=== PATIENT | female | born 1965 | race Hispanic/Latino ===

== ENCOUNTER 2017-04-19 10:04 | Day surgery (SDC) | payer OTHER ==
[2017-04-18 13:03] VITALS: BMI 36.1
--- NOTE | 2017-04-18 19:38 | ADD-HP ---
ADDENDUM Alessandra Chong was seen on 01/31/2017 with symptomatic gallstone. She had financial issues a nd now has presented ready to schedule for surgery. She has resolved her financial issues. Plan is for laparoscopic video cholecystectomy. Risk of infection, bleeding, reoperation, visceral injury di scussed, tool carrier form was used, questions answered. Her past history is the same as her recent hi story and physical. MEDICATIONS: Vitamin D daily, hydrochlorothiazide 25 mg a day, lisinopril 10 mg daily, Tandem Plus 1 62/115.2 mg daily. PHYSICAL EXAMINATION: VITAL SIGNS: 158.4 pounds, 60 inches, 30 BMI, 136/65, 88, 100 degrees. HEAD, EYES, EARS, NOSE, AND THROAT: Unremarkable. LUNGS: Clear to auscultation. CARDIAC: Regular rate and rhythm without murmur, rub, or gallop. ABDOMEN: Soft. Mild tenderness in right upper quadrant. ASSESSMENT AND PLAN: Symptomatic gallstones. PLAN: Laparoscopic video cholecystectomy. Risks and benefits explained. She consents. We will jenifer n this as an outpatient in the near future, probably tomorrow.
[2017-04-19] MEDS ORDERED: Ketorolac Tromethamine 30 MG/ML VIAL ONE (10:31)
[2017-04-19] MEDS ORDERED: Levofloxacin 500 mg/D5W 100 ml Premix Bag ONE (10:31)
[2017-04-19] MEDS ORDERED: Potassium Chloride 40 MEQ, Admixture Fee 1 EACH in Sodium Chloride 0.9% 250 ML 250 ML IVPB SCH (11:30)
[2017-04-19] MEDS ORDERED: Lidocaine 2% w/Epinephrine 1:200K 20 ML VIAL ONE (12:37)
[2017-04-19] MEDS ORDERED: Bupivacaine 0.25% HCL 30 ML VIAL ONE (12:37)
[2017-04-19] MEDS ORDERED: Fentanyl 100 MCG/2 ML VIAL ONE (12:45)
[2017-04-19] MEDS ORDERED: Midazolam HCl 2 mg/2 ml Vial ONE (12:45)
--- NOTE | 2017-04-19 14:08 | OP ---
DATE OF PROCEDURE: 04/19/2017 PREOPERATIVE DIAGNOSES: Acute chronic cholecystitis, cholelithiasis. POSTOPERATIVE DIAGNOSES: Acute chronic cholecystitis, cholelithiasis. PROCEDURE PERFORMED: Laparoscopic video cholecystectomy. FINDINGS: Multiple large stones, thickened gallbladder wall, mild edema and normal liver. SURGEON: Dr. Mitchell Harris. ANESTHESIA: General. Local 0.5% Marcaine, 30 mL, mixed with 2% Xylocaine with epinephrine 20 mL tot al volume mixture used. PROCEDURE IN DETAIL: Patient was taken to the operating room where under general anesthesia, abdomen was clipped of hair, prepared with ChloraPrep, draped in routine fashion. Local anesthetic infiltra omra into skin and subcutaneous tissue about the operative site. Infraumbilical incision made and pne umoperitoneum to 15 mmHg obtained with the Veress needle, replacing it with a 5 port and laparoscope inserted. Right subxiphoid incision was made and 11 port placed. Right subcostal incision made mid clavicular anterior axillary lines and 5 ports placed. The gallbladder wall was thickened and mildly edematous. Fundus grasped and reflected cephalad. Infundibulum grasped and reflected laterally. C ystic artery and duct dissected free. Critical view obtained with pericholecystic dissection 2/3 of the cystic plate, cystic artery and duct doubly clipped proximally, divided, and gallbladder dissecte d free from the liver bed obtaining good hemostasis prior to division of final peritoneal attachments . Gallbladder and multiple stones removed and submitted to Pathology. Good hemostasis ensured with the cautery. The patient tolerated the procedure well. Good hemostasis ensured. Pneumoperitoneum a nd irrigant evacuated. All instruments removed and all skin incisions approximated with interrupted subdermal 4-0 Monocryl and DermaGlue applied.
[2017-04-19] MEDS ORDERED: HYDROcodone/Acetaminophen 5/325 mg Tablet ONE (15:32)
[2017-04-19] MEDS ORDERED: Lidocaine 1% PF 5 ML VIAL ONE (15:54)
[2017-04-19] MEDS ORDERED: Dexamethasone 20 MG/5 ML VIAL ONE (15:54)
[2017-04-19] MEDS ORDERED: Glycopyrrolate 0.2 MG/ML 5 ML SYRINGE ONE (15:54)
[2017-04-19] MEDS ORDERED: PROPOFOL 200 MG/20 ML VIAL ONE (15:54)
[2017-04-19] MEDS ORDERED: Ondansetron HCl/PF 4 MG/2 ML Vial ONE (15:54)
== END 2017-04-19 16:25 | disposition home or self-care (01) ==
LOC: SDC 10:04
PROVIDERS: ATTEND Specialist
PROC: 0FT44ZZ Resection of Gallbladder, Percutaneous Endoscopic Approach (ICD-10-PCS; principal; 2017-04-19)
DX: K80.12 Calculus of gallbladder with acute and chronic cholecystitis without obstruction (principal); I10 Essential (primary) hypertension; C50.912 Malignant neoplasm of unspecified site of left female breast; Z79.899 Other long term (current) drug therapy; Z88.0 Allergy status to penicillin; Z98.890 Other specified postprocedural states
CPT/HCPCS: 88304; J0131; J1100; J1885; J1956; J2001; J2250; J2405; J2704; J3010; J3480; J7050; S0020

== ENCOUNTER 2018-04-02 03:12 | Inpatient (IN) | payer SELFPAY ==
[2018-04-02] MEDS ORDERED: Diazepam 5 MG TAB ONE (03:58)
[2018-04-02] MEDS ORDERED: Ketorolac Tromethamine 30 MG/ML VIAL ONE (03:58)
[2018-04-02 04:25] LABS: #Basophils 0.1 thou/uL (0.0-0.2); #Lymphocytes 2.2 thou/uL (1.20-3.40); #Monocytes 0.9 thou/uL (0.11-0.59); #Neutrophils 9.9 thou/uL (1.40-6.50); %Basophils 0.5 % (0.0-1.0); %Eosinophils 0.3 % (0.0-10.0); %Lymphocytes 16.9 % (21.0-51.0); %Monocytes 6.7 % (0.0-10.0); %Neutrophils 75.7 % (42.0-75.0); Hemoglobin 12.7 g/dL (12.0-16.0); Mean Corpuscular HGB CONC 35.1 g/dL (32.0-36.0); Mean Corpuscular Hemoglobin 28.7 pg (27.0-31.0); Mean Corpuscular Volume 81.7 fL (78.0-98.0); Mean Platelet Volume 7.4 fL (7.4-10.4); Platelet Count 364 thou/uL (130-400); Red Blood Cell (RBC) Count 4.42 mill/uL (4.20-5.40); White Blood Cell (WBC) Count 13.1 thou/uL (4.8-10.8)
[2018-04-02 04:43] LABS: Acetaminophen Less than 6.0 mcg/mL (10.0-30.0); Alcohol Less than 10 mg/dL (Less than 10); Salicylate Less than 8.0 mg/dL (15.0-30.0)
[2018-04-02 04:45] LABS: ALT (SGPT) 28 U/L (8-55); AST (SGOT) 20 U/L (5-34); Albumin 3.7 g/dL (3.5-5.0); Alkaline Phosphatase 63 U/L (40-150); Anion Gap 17 mmol/L (10-20); BUN (Urea Nitrogen) 10 mg/dL (9.8-20.1); Bilirubin, Total 0.8 mg/dL (0.2-1.2); CK (CPK) 250 U/L (29-168); Calc. Creatinine Clearance 0 mL/min (70-130); Calcium 8.3 mg/dL (7.8-10.44); Carbon Dioxide 25 mmol/L (22-29); Chloride 75 mmol/L (98-107); Estimated GFR-MDRD Greater than 90; Globulin 2.6 g/dL (2.4-3.5); Glucose 174 mg/dL (70-105); Protein, Total 6.3 g/dL (6.0-8.3)
[2018-04-02 04:55] LABS: Potassium 2.2 mmol/L (3.5-5.1); Sodium 115 mmol/L (136-145)
[2018-04-02 05:28] LABS: Osmolality, Serum 245 mOsm/kg (280-295)
[2018-04-02] MEDS ORDERED: Potassium Chloride 20 MEQ TAB ONE (05:43)
[2018-04-02 06:10] LABS: Base Excess-Venous 6.7 mmol/L (0 (+/- 2.5)); Bicarbonate (HCO3v) 30.1 mmol/L (22.0-29.0); CO2 Tension (PvCO2) 37.8 mmHg (41.0-51.0); Hemoglobin - Calc 13.5 g/dL (12.0-18.0); O2 Tension (PvO2) 44.6 mmHg (35.0-45.0); Potassium 2.1 mmol/L (3.4-4.7); T. Carbon Dioxide 31.2 mmol/L (1.0-85.0); pH (Venous) 7.509 (7.35-7.45); vO2 Saturation-calc 84.6 % (94-98)
--- NOTE | 2018-04-02 07:55 | RAD ---
CHEST 1 VIEW: INDICATION: Heart palpitations. COMPARISON: None. FINDINGS: There are low lung volumes. The heart size is accentuated by exam technique. No definite consolidat ion, pleural effusion, or pneumothorax is evident. No acute osseous abnormality is grossly evident. A small focus of calcific tendinosis overlies the left greater tuberosity of the shoulder. IMPRESSION: 1. No acute cardiopulmonary abnormality. 2. Calcific tendinosis of the left shoulder. POS: BH
[2018-04-02 08:10] VITALS: BMI 26.4
--- NOTE | 2018-04-02 08:50 | CT ---
PRELIMINARY REPORT/[facility]/EMERGENTY AFTER-HOURS PROCEDURE CT Head Without Contrast EXAM DATE/TIME: 04/02/2018 4:15 AM CLINICAL HISTORY: 53 years old, female; Signs and symptoms; Altered mental status/memory loss; Confusion or disorientat ion; Patient HX: LUANN; 53 yo f presents to ed with complaint of anxiety. PT reports she woke up feelin g anxious and states that she "couldn't feel her body. " PT states repeatedly " i can't feel my body. " PT also reports associated headache. PT denies any pain. PT reports she had no medical issues prio r to going to sleep. TECHNIQUE: Axial computed tomography images of the head/brain without contrast. COMPARISON: No relevant prior studies available. FINDINGS: Brain: No intracrainal hemorrhage. No midline shift. The brain parenchyma appears normal for age. Ventricles: No ventriculomegaly. Bones/joints: Normal. No acute fracture. Sinuses: Normal as visualized. No acute sinusitis. Mastoid air cells: Normal as visualized. No mastoid effusion. Soft tissues: Normal. IMPRESSION: No acute intracranial abnormality. Thank you for allowing us to participate in the care of your patient. Dictated and Authenticated by: Jose Antonio Diehl MD 04/02/2018 4:25 AM Central Time ([place] & [place]) FINAL REPORT CT BRAIN WITHOUT CONTRAST: I agree with the preliminary report provided. No acute intracranial abnormality is evident. POS:
[2018-04-02 10:07] LABS: Anion Gap 10 mmol/L (10-20); BUN (Urea Nitrogen) 6 mg/dL (9.8-20.1); Calc. Creatinine Clearance 133 mL/min (70-130); Calcium 8.6 mg/dL (7.8-10.44); Carbon Dioxide 29 mmol/L (22-29); Chloride 80 mmol/L (98-107); Estimated GFR-MDRD Greater than 90; Glucose 134 mg/dL (70-105)
[2018-04-02 10:15] LABS: Potassium 2.7 mmol/L (3.5-5.1); Sodium 116 mmol/L (136-145)
[2018-04-02] MEDS ORDERED: Ondansetron ODT 4 MG TAB PO PRN (10:43)
[2018-04-02] MEDS ORDERED: Ondansetron PF 4 MG/2 ML Vial IVP PRN (10:43)
[2018-04-02] MEDS ORDERED: Loperamide HCl 2 MG CAP PO PRN (10:43)
[2018-04-02] MEDS ORDERED: Potassium Chloride 60 MEQ in Premix Bag 1 BAG IVPB SCH (10:45)
[2018-04-02] MEDS ORDERED: Sodium Chloride 3% 500 ML IVPB SCH ×3 (10:45→14:36)
--- NOTE | 2018-04-02 11:23 | RAD ---
CHEST 1 VIEW: INDICATION: History of subclavian central venous catheter placement. COMPARISON: Prior study dated 04/02/2018. FINDINGS: There is a new left subclavian central venous catheter in place projecting in the region of the right atrium. No definite pneumothorax is evident. There are low lung volumes that accentuate the cardia c silhouette. Chronic osseous changes are stable. IMPRESSION: 1. New left subclavian central venous catheter without visible pneumothorax. 2. Low lung volumes. POS: [facility]
[2018-04-02] MEDS ORDERED: Potassium Chloride 40 MEQ in Sodium Chloride 0.9% 250 ML 250 ML IVPB SCH (11:45)
[2018-04-02] MEDS: ALPRAZolam 1 MG TAB PO PRN ×2 (11:56→23:44)
--- NOTE | 2018-04-02 12:41 | OP ---
DATE OF PROCEDURE: 04/02/2018 PREOPERATIVE DIAGNOSIS: Acute severe hyponatremia. POSTOPERATIVE DIAGNOSIS: Acute severe hyponatremia. PROCEDURE PERFORMED: Placement of left subclavian central venous catheter. INDICATIONS FOR PROCEDURE: A 53-year-old woman, presented with severe acute hyponatremia. I was asked to place a central venous access to facilitate hypertonic saline infusion. DESCRIPTION OF PROCEDURE: Informed consent obtained for the patient and was placed in supine position. Left chest wall sterilely prepped and draped in usual fashion. Skin below the left clavicle anesthestized with 1% lidocaine. Left subclavian vein was then cannulated with an 18-gauge introducer needle returning dark venous blood. Guidewire was passed through the needle and advanced through the left subclavian vein without resistance. Needle was withdrawn over the guidewire. A stab incision was made adjacent to the guidewire using 11 scalpel. The dilator was passed over the guidewire, dilating the subcutaneous tissues. The dilator was removed and a triple-lumen central venous catheter was advanced over the guidewire and placed in the left subclavian vein without resistance stopping at the 18 cm yudy. Guidewire was removed. Dark venous blood was aspirated from all three ports which were then individually flushed with saline. The catheter was secured to anterior chest wall using 3-0 silk suture at two points. Sterile dressing was applied. The patient tolerated this procedure without any apparent complications. Chest x-ray was obtained confirming proper placement of the port. No pneumothorax present. Job ID: [id number]
[2018-04-02 14:18] LABS: Sodium 123 mmol/L (136-145)
[2018-04-02 14:22] LABS: Anion Gap 12 mmol/L (10-20); BUN (Urea Nitrogen) 6 mg/dL (9.8-20.1); Calc. Creatinine Clearance 112 mL/min (70-130); Calcium 9.1 mg/dL (7.8-10.44); Carbon Dioxide 28 mmol/L (22-29); Chloride 87 mmol/L (98-107); Estimated GFR-MDRD Greater than 90; Glucose 140 mg/dL (70-105); Potassium 3.6 mmol/L (3.5-5.1); Sodium 123 mmol/L (136-145)
[2018-04-02 16:55] LABS: Magnesium 2.3 mg/dL (1.6-2.6); Phosphorus 2.1 mg/dL (2.3-4.7)
[2018-04-02] MEDS: Sodium Chloride 0.9% 1,000 ML IV SCH (17:15)
[2018-04-02 17:21] LABS: Sodium 129 mmol/L (136-145)
[2018-04-02] MEDS: Potassium Chloride 20 MEQ TAB PO SCH ×2 (17:30→20:48)
[2018-04-02] MEDS: Famotidine 20 MG TAB PO SCH (20:48)
--- NOTE | 2018-04-02 21:11 | CON ---
DATE OF CONSULTATION: 04/02/2018 SERVICE: Pulmonary Medicine. REASON FOR CONSULTATION: IMCU patient. HISTORY OF PRESENT ILLNESS: The patient is a 53-year-old female with past medical history significant for breast cancer. She was in her usual state of health when she started having increasing sensory problems, and mental status changes. She presented to the emergency department for further evaluation. CT of the head and some basic laboratory work was done. Her sodium was extremely low. She was tucked in IMCU and initiated on 3% saline. She denies any shortness of breath or chest discomfort. She has some low abdominal discomfort on palpation, but indicates that she needs to use the restroom. Otherwise, she is returning to her usual state of health. She had some weakness on presentation, which is getting better. PAST MEDICAL HISTORY: 1. Hypertension. 2. Breast cancer. 3. Anxiety disorder. PAST SURGICAL HISTORY: 1. Cholecystectomy. 2. Excisional biopsy of left breast nodule. 3. Unilateral oophorectomy, left. 4. Bladder suspension surgery in 2010. FAMILY HISTORY: Noncontributory. SOCIAL HISTORY: Negative for alcohol, tobacco, or illicit drug use. She denies any exposure to chemicals, dust, asbestos, or tuberculosis. ALLERGIES: PENICILLIN CAUSES A RASH. MEDICATIONS: List of her inpatient medications was reviewed. No specific updates were made at this time. REVIEW OF SYSTEMS: General, head, ears, eyes, nose, throat, cardiovascular, respiratory, GI, , musculoskeletal, neurologic, and skin are negative except as mentioned is the HPI. PHYSICAL EXAMINATION: VITAL SIGNS: Afebrile, pulse 112, blood pressure 166/77, respirations 22, and saturation 96% on room air. GENERAL: The patient is awake and alert, in no apparent distress. LUNGS: Excellent air entry without any prolonged expiratory phase, wheezing, rhonchi, or crackles. HEART: Normal rate and regular. ABDOMEN: Soft, nontender, and nondistended. Bowel sounds are positive. MUSCULOSKELETAL: No cyanosis or clubbing. There is no pitting in the bilateral lower extremities. NEUROLOGIC: Grossly nonfocal. LABORATORY DATA: CBC is essentially unremarkable except for a WBC of 13.0. A pH 7.5, pCO2 of 37, pO2 of 45. Chloride, potassium, and sodium are all low. Creatinine falls within normal limits. Ionized calcium 1.0 and osmolality 245. TSH falls within the normal limits. Troponin is negative. Liver function studies are unremarkable. Urinalysis is positive for moderate leukocyte esterase and trace blood. There was significant amount of squamous epithelial cells noted. Urine osmolality is very low. Plasma alcohol, acetaminophen, and salicylates are all unremarkable. Urine cultures are negative. IMAGING: CT of the head was without acute intracranial process. ASSESSMENT: 1. Metabolic encephalopathy, improving. 2. Hyponatremia, on 3% saline. 3. Hypokalemia. 4. Hypocalcemia. DISCUSSION AND PLAN: Nephrology has been consulted working up the hyponatremia. We will back off on the 3% as the patient is fairly easily correcting. We will replace the potassium through time. I will check a magnesium and phosphorus with the next blood draw. Pulmonary/Critical Care will continue to follow along. She will need to remain in the IMCU until she is off the 3% saline. 70 minutes have been devoted to this patient in various activities. I personally reviewed all imaging studies and laboratory data noted within this document. For fifty percent of this time, I was interacting with the patient at the bedside or coordinating care with the care team. For the remainder of the time I was immediately available to the patient in the hospital unit. Job ID: [id number] MTDD
[2018-04-02 21:19] LABS: Sodium 132 mmol/L (136-145)
--- NOTE | 2018-04-03 00:09 | HP ---
CHIEF COMPLAINT: The patient is not feeling good, has stopped eating and is miserable. HISTORY OF PRESENTING ILLNESS: This is a 53-year-old female who was brought in by her family members for increasing confusion, altered mental status, weakness, reduced appetite, and just being miserable in general, and this is going on for close to a month, but increasing in intensity in the past 1 week. The patient or the family are very poor historians. This is in spite of getting a pan washer on the video conference line. The patient when asked denies having any pain, but she looks very uncomfortable in the ICU. PAST MEDICAL HISTORY: Significant for hypertension. PAST SURGICAL HISTORY: Not significant. ALLERGIES: ALLERGIC TO PENICILLIN. REVIEW OF SYSTEMS: CONSTITUTIONAL: Please see HPI. HEENT: Complaints of headache, loss of appetite. No complaints of any blurred vision, nose or ear pain, nose or ear discharge. No complaints of any sore throat. No complaints of any neck pain. RESPIRATORY: No complaints of any respiratory distress. No complaints of any wheezing. CARDIOVASCULAR: No complaints of any chest pain or palpitations or murmur. ABDOMEN: Please see HPI. Complaints of anorexia and nausea. NEUROLOGIC: The patient is increasingly confused, altered, and not really responding well to the family members' verbal cues. MUSCULOSKELETAL: No complaints of pain or swelling of the lower extremity or upper extremity. PSYCHIATRIC: See HPI. PHYSICAL EXAMINATION: VITAL SIGNS: Temperature 98.4, pulse is 88, respiratory rate 20, O2 saturation is 92 to 96 on room air, blood pressure around 150/80. CONSTITUTIONAL: The patient looks in distress. She is writhing in the bed. Does not answer any of the questions, but she is awake and alert, keeps mumbling that she does not feel good. HEENT: Normocephalic, atraumatic head. Normal external canal and tympanic membrane. Normal eyelids and conjunctivae. Pupils are round and reactive to light. Midline trachea. Moist oral mucosa. No cervical lymphadenopathy. RESPIRATORY: Good air entry into both lung anton. No wheezes. No rales. CHEST: Regular rate and rhythm. No murmurs. No gallops. ABDOMEN: Soft, NT, ND. No organomegaly. No masses. No guarding. NEUROLOGIC: The patient is really not responding to any verbal cues, but moving all the 4 extremities, not answering any questions. PSYCHIATRIC: The patient looks very anxious, and looks very uncomfortable, but denies any pain. LABORATORY DATA: Sodium is significantly low at 116, potassium is 2.7, low serum osmolality at 245. Urine osmolality low at 82. Urine sodium less than 20. CT of the brain with no acute abnormalities. ASSESSMENT AND PLAN: 1. Hyponatremia, severe hypo-osmolar hyponatremia: Gently hydrate the patient with hypertonic saline, q.2 hours, check on the sodium, completely stop hydrochlorothiazide. Eventually fluid restrict once patient starts eating and drinking. 2. Severe hypokalemia. Supplement with IV potassium. 3. Hypertension. Trend blood pressures right now, completely stop hydrochlorothiazide and start on a new beta-kimmie or amlodipine for controlling the blood pressures in the future. 4. Continue to monitor with serial BMP, supplement as required, seizure precautions. 5. Be careful at the rate of which sodium is increased to avoid cerebral edema. 6. The patient's prognosis is good, but right now she is critically ill. 7. Renal has been consulted. Job ID: [id number] [facility] CENTERBronson
[2018-04-03 00:13] LABS: Anion Gap 10 mmol/L (10-20); BUN (Urea Nitrogen) 5 mg/dL (9.8-20.1); Calc. Creatinine Clearance 130 mL/min (70-130); Carbon Dioxide 28 mmol/L (22-29); Chloride 95 mmol/L (98-107); Estimated GFR-MDRD Greater than 90; Glucose 84 mg/dL (70-105); Potassium 4.3 mmol/L (3.5-5.1); Sodium 129 mmol/L (136-145)
[2018-04-03] MEDS: Sodium Chloride 0.9% 1,000 ML IV SCH (03:30)
[2018-04-03 05:19] LABS: Anion Gap 10 mmol/L (10-20); BUN (Urea Nitrogen) 8 mg/dL (9.8-20.1); Calc. Creatinine Clearance 133 mL/min (70-130); Calcium 8.1 mg/dL (7.8-10.44); Carbon Dioxide 25 mmol/L (22-29); Chloride 103 mmol/L (98-107); Estimated GFR-MDRD Greater than 90; Glucose 82 mg/dL (70-105); Potassium 3.9 mmol/L (3.5-5.1); Sodium 134 mmol/L (136-145)
[2018-04-03] MEDS: Enoxaparin Sodium 40 MG/0.4 ML SYRINGE SC SCH (09:20)
[2018-04-03] MEDS: Famotidine 20 MG TAB PO SCH ×2 (09:20→20:11)
--- NOTE | 2018-04-03 11:06 | PRG ---
DATE OF SERVICE: 04/03/2018 SERVICE: Pulmonary Medicine. INTERVAL HISTORY: The patient is doing great from respiratory standpoint. She is breathing comfortably. Sodium has risen appropriately. She denies any strength issues or neurologic issues, other than some lateral cutaneous nerve syndrome features associated with her being in bed. Otherwise, there has been no interval change to her condition. Her appetite has improved and she has been moving with physical therapy. PHYSICAL EXAMINATION: VITAL SIGNS: Afebrile, pulse 68, blood pressure 96/59, respirations 20, and saturation 97% on room air. GENERAL: The patient is awake and alert, in no apparent distress. LUNGS: Excellent air entry. There is no prolonged expiratory phase or wheezing present. HEART: Normal rate. Regular. ABDOMEN: Soft, nontender, and nondistended. Bowel sounds are positive. MUSCULOSKELETAL: No cyanosis or clubbing. There is no pitting in the bilateral lower extremities. NEUROLOGIC: Grossly nonfocal. LABORATORY DATA: Sodium 134. Basic metabolic profile is otherwise unremarkable. Potassium 3.9. ASSESSMENT: 1. Metabolic encephalopathy, resolved. 2. Hyponatremia, improving. 3. Hypokalemia, resolved. DISCUSSION AND PLAN: The patient is stable for transition out of the [facility] to the medical unit. Pulmonary/Critical Care will continue to follow along, if she remains in this location. Job ID: [id number]
--- NOTE | 2018-04-03 15:20 | PDOC.PN ---
- Subjective Encounter Start Date: 04/03/18 Encounter Start Time: 15:18 Subjective: no new complaints.family at bedside. -: no CP/dizziness/AMS/SOB/fever - Objective Resuscitation Status - Order Detail: 04/02/18 10:43 Resuscitation Status Routine Resuscitation Status: FULL: Full Resuscitation MAR Reviewed: Yes Vital Signs & Weight: Vital Signs (12 hours) Temp Pulse Resp BP Pulse Ox 04/03/18 15:06 98.4 F 97 20 105/67 98 04/03/18 11:05 98.4 F 88 18 103/57 L 98 04/03/18 07:39 97.8 F 67 20 96/59 L 97 04/03/18 04:00 98.2 F 75 14 91/59 L 97 Weight Weight 154 lb 7 oz I&O: 04/02/18 04/03/18 04/04/18 06:59 06:59 06:59 Intake Total 3227 Output Total 4375 Balance -1148 Result Diagrams: 04/02/18 04:03 04/03/18 04:23 Additional Labs: Laboratory Tests 04/02/18 04/02/18 04/02/18 04:03 09:21 13:48 Sodium 115 L* 116 L* 123 L 04/02/18 04/02/18 04/02/18 13:48 16:18 20:54 Sodium 123 L 129 L 132 L 04/03/18 04:23 Sodium 134 L Phys Exam - Physical Examination Constitutional: NAD sitting up in chair and chatting w family. HEENT: PERRLA, moist MMs, sclera anicteric, oral pharynx no lesions Neck: no nodes, no JVD, supple, full ROM Respiratory: no wheezing, no rales, no rhonchi, clear to auscultation bilateral Cardiovascular: RRR, no significant murmur, no rub Gastrointestinal: soft, non-tender, no distention, positive bowel sounds Musculoskeletal: no edema, pulses present Neurological: non-focal, normal sensation, moves all 4 limbs Psychiatric: normal affect, A&O x 3 Skin: no rash Dx/Plan (1) Hyponatremia with decreased serum osmolality Code(s): E87.1 - HYPO-OSMOLALITY AND HYPONATREMIA Status: Acute (2) Hypokalemia Code(s): E87.6 - HYPOKALEMIA Status: Acute (3) Anxiety Code(s): F41.9 - ANXIETY DISORDER, UNSPECIFIED Status: Acute (4) Hypertension Code(s): I10 - ESSENTIAL (PRIMARY) HYPERTENSION Status: Acute - Plan DVT proph w/SCDs sodium better. DC HCTZ.on hold here -: BP controlled -: Hypertonic saline stopped. -: OK for medical w bacilio GRIMALDO in am -: recheck labs in am * . Review of Systems - Review of Systems Constitutional: negative: fever, chills, sweats, weakness, malaise, other ENT: negative: Ear Pain, Ear Discharge, Nose Pain, Nose Discharge, Nose Congestion, Mouth Pain, Mouth Swelling, Throat Pain, Throat Swelling, Other Respiratory: negative: Cough, Dry, Shortness of Breath, Hemoptysis, SOB with Excertion, Pleuritic Pain, Sputum, Wheezing Cardiovascular: negative: chest pain, palpitations, orthopnea, paroxysmal nocturnal dyspnea, edema, light headedness, other Gastrointestinal: negative: Nausea, Vomiting, Abdominal Pain, Diarrhea, Constipation, Melena, Hematochezia, Other Genitourinary: negative: Dysuria, Frequency, Incontinence, Hematuria, Retention , Other Neurological: negative: Weakness, Numbness, Incoordination, Change in Speech, Confusion, Seizures, Other - Medications/Allergies Allergies/Adverse Reactions: Allergies Allergy/AdvReac Type Severity Reaction Status Date / Time Penicillins Allergy Verified 04/02/18 07:43 Medications: Current Medications Alprazolam (Xanax) 1 mg PO BIDPRN PRN PRN Reason: Anxiety Last Admin: 04/02/18 23:44 Dose: 1 mg Enoxaparin Sodium (Lovenox) 40 mg SC 0900 [facility] Last Admin: 04/03/18 09:20 Dose: 40 mg Famotidine (Pepcid) 20 mg PO BID [facility] Last Admin: 04/03/18 09:20 Dose: 20 mg Loperamide HCl (Imodium) 2 mg PO PRN PRN PRN Reason: Diarrhea/Loose Stools Ondansetron HCl (Zofran Odt) 4 mg PO Q6H PRN PRN Reason: Nausea/Vomiting Ondansetron HCl (Zofran) 4 mg IVP Q6H PRN PRN Reason: Nausea/Vomiting Sodium Chloride (Flush - Normal Saline) 10 ml IVF Q12HR [facility] Last Admin: 04/03/18 10:13 Dose: 10 ml Sodium Chloride (Flush - Normal Saline) 10 ml IVF PRN PRN PRN Reason: Saline Flush
[2018-04-03] MEDS ORDERED: Acetaminophen 500 MG TAB PO PRN (17:15)
--- NOTE | 2018-04-03 18:51 | PRG ---
DATE OF SERVICE: 04/03/2018 SUBJECTIVE: The patient noted with the following vital signs. OBJECTIVE: VITAL SIGNS: Afebrile, temperature 98.4, pulse 97, respiratory rate of 20, O2 saturations 98%, and blood pressure 105/67. HEENT: Unremarkable. CARDIOVASCULAR SYSTEM: First and second heart sounds were heard. RESPIRATORY SYSTEM: Clear to auscultation. DIGESTIVE SYSTEM: Revealed a benign abdomen. EXTREMITIES: No peripheral edema. SKIN: No new gross rash. LYMPHATICS: No peripheral lymphadenopathy. LABORATORY INVESTIGATION: Showed a sodium, which has gone up to 134. IMPRESSION: Severe hyponatremia, which seems to have improved status post hypertonic saline and normal saline. The patient's mental status has so much improved. PLAN: 1. We will discontinue all IV fluid and continue the patient on regular diet. 2. The patient to follow up with Nephrology as an outpatient. Job ID: [id number]
--- NOTE | 2018-04-04 01:05 | CON ---
DATE OF CONSULTATION: CONSULTING PHYSICIAN: Justin Carlton MD REQUESTING PHYSICIAN: Yoly Horn MD REASON FOR CONSULTATION: Severe symptomatic hyponatremia. IMPRESSION: Severe symptomatic hyponatremia likely in the context of hydrochlorothiazide use compounded by poor osmolar intake. However, I cannot completely rule out SIADH as precipitating factor. PLAN: 1. Given the severity of this hyponatremia and the symptomatic nature, we will guide and start this patient on hypertonic saline and monitor the sodium very closely. Once the sodium has gotten above 120 level, we will transition over to normal saline. 2. Permanently discontinue hydrochlorothiazide on any other SSRI. 3. Increase protein intake in the way of animal meat. We will place this patient on regular diet. 4. Further management will be dependent on the clinical course. HISTORY OF PRESENT ILLNESS: A 53-year-old female patient, who presented here with not feeling well, not eating very well. The patient could not offer much of any history. The patient's sleep apnea completely altered and patient seems to have been confused for the most part according to the family member. On presentation, the patient was noted to have severe hyponatremia with sodium of 115 which went down to 111. As a result of these findings, decision has been taken to admit this patient to IMCU and have Renal evaluate this patient. Of note, the patient has been on hydrochlorothiazide and evaluation of all other medications also showed venlafaxine and paroxetine, though patient claimed not to be taking this medication but hydrochlorothiazide the patient has been on it. PAST MEDICAL HISTORY: Significant for hypertension and possible anxiety and depression. ALLERGIES: TO PENICILLIN. REVIEW OF SYSTEMS: Could not be verified, could not be obtained comprehensively from this patient who seems to be out of it. PHYSICAL EXAMINATION: GENERAL: The patient was found to be quite confused and somnolent. VITAL SIGNS: Noted with the following vital signs; afebrile temperature 97.8, pulse 67, respiratory rate of 20, O2 saturations of 97%, blood pressure 96/59. HEENT: Unremarkable. CARDIOVASCULAR SYSTEM: First and second heart sounds were heard. RESPIRATORY SYSTEM: Clear to auscultation. DIGESTIVE SYSTEM: Revealed a benign abdomen with positive bowel sounds. EXTREMITIES: No peripheral edema. SKIN: No new gross rash. LYMPHATICS: No peripheral lymphadenopathy. SUMMARY: A 53-year-old female patient with severe hyponatremia. Thank you for this consultation. We will follow with you. Job ID: [id number]
[2018-04-04 07:13] VITALS: BP 120/63; TEMP 98.4
[2018-04-04] MEDS: Enoxaparin Sodium 40 MG/0.4 ML SYRINGE SC SCH (08:46)
[2018-04-04] MEDS: Famotidine 20 MG TAB PO SCH (08:47)
[2018-04-04 08:48] LABS: Anion Gap 12 mmol/L (10-20); BUN (Urea Nitrogen) 14 mg/dL (9.8-20.1); Calc. Creatinine Clearance 105 mL/min (70-130); Calcium 8.8 mg/dL (7.8-10.44); Carbon Dioxide 26 mmol/L (22-29); Chloride 103 mmol/L (98-107); Estimated GFR-MDRD 89; Glucose 123 mg/dL (70-105); Potassium 3.7 mmol/L (3.5-5.1); Sodium 137 mmol/L (136-145)
[2018-04-04 09:03] LABS: #Eosinphils 0.2 thou/uL (0.0-0.7); #Lymphocytes 2.8 thou/uL (1.20-3.40); #Monocytes 0.4 thou/uL (0.11-0.59); #Neutrophils 3.8 thou/uL (1.40-6.50); %Basophils 0.1 % (0.0-1.0); %Eosinophils 2.9 % (0.0-10.0); %Lymphocytes 38.5 % (21.0-51.0); %Monocytes 4.9 % (0.0-10.0); %Neutrophils 53.5 % (42.0-75.0); Hemoglobin 11.2 g/dL (12.0-16.0); Mean Corpuscular HGB CONC 32.1 g/dL (32.0-36.0); Mean Corpuscular Hemoglobin 27.9 pg (27.0-31.0); Mean Corpuscular Volume 86.7 fL (78.0-98.0); Mean Platelet Volume 7.6 fL (7.4-10.4); Platelet Count 321 thou/uL (130-400); RBC Distribution Width 12.8 % (11.5-14.5); Red Blood Cell (RBC) Count 4.02 mill/uL (4.20-5.40); White Blood Cell (WBC) Count 7.2 thou/uL (4.8-10.8)
--- NOTE | 2018-04-04 10:03 | PRG ---
DATE OF SERVICE: 04/04/2018 SERVICE: Pulmonary Medicine. SUBJECTIVE: The patient has returned to her usual state of health. Denies any current chest pain, fevers, chills, nausea, or vomiting. She has been able to get around the room without any difficulties. Otherwise, there has been no interval change to her condition. PHYSICAL EXAMINATION: VITAL SIGNS: Afebrile, pulse 72, respirations 18, and saturation 98% on room air. GENERAL: The patient is awake and alert, in no apparent distress. LUNGS: Excellent air entry. There is no prolonged expiratory phase or wheezing. HEART: Normal rate, regular. ABDOMEN: Soft, nontender, and nondistended. Bowel sounds are positive. MUSCULOSKELETAL: No cyanosis or clubbing. There is no pitting in the bilateral lower extremities. NEUROLOGIC: Grossly nonfocal. LABORATORY DATA: WBC 7.2, hemoglobin 11.2, and platelets 321,000. Sodium 137. Basic metabolic profile is otherwise unremarkable. ASSESSMENT: 1. Metabolic encephalopathy, resolved. 2. Hyponatremia, secondary to hydrochlorothiazide, resolved. 3. Hypokalemia, resolved. DISCUSSION AND PLAN: The patient is stable for discharge from the hospital. I will sign off when she leaves this location. Please call with additional questions or concerns moving forward. Job ID: [id number]
--- NOTE | 2018-04-04 17:37 | DIS ---
DATE OF ADMISSION: 04/02/2018 DATE OF DISCHARGE: 04/04/2018 CONDITION AT THE TIME OF DISCHARGE: Stable and improved. DISCHARGE DIAGNOSES: 1. Hyponatremia, severe, likely secondary to hydrochlorothiazide and poor oral intake. 2. Hypokalemia, resolved. 3. Metabolic encephalopathy secondary to #1, resolved. INHOUSE CONSULTATION: Nephrology, Dr. Carlton. PROCEDURES DONE IN THE HOSPITAL: Placement of a central line by Dr. Blankenship for IV access in the left subclavian vein. CT scan of the brain upon presentation, which was negative for any acute changes. DISCHARGE MEDICATION: The patient has been taken off her hydrochlorothiazide. She will resume lisinopril 10 mg daily. PRIMARY CARE PHYSICIAN: Shonda Sparrow MD. HISTORY OF PRESENTING ILLNESS: Ms. Chong is a 53-year-old female with past medical history of hypertension, presented to the emergency room for generalized weakness, malaise, and poor appetite with altered mental status and increasing confusion. Upon presentation, she was found to be hemodynamically stable with this, but with a sodium as low as 116 and potassium of 2.7. Serum osmolality 245. CT scan of the brain was negative. She was admitted to [facility] with hyponatremia and Nephrology was consulted. She was started on IV fluids, with frequent sodium level checks. Potassium was also replaced. Please see admission history and physical for further details. HOSPITAL COURSE: The patient was seen by Dr. Kwong while she was in the [facility] as well as by Nephrology, Dr. Anderson. She was started on hypertonic saline by Dr. Anderson, which was later stopped once her sodium started to normalize quickly. By the time of discharge, her sodium was 137. Potassium was 3.7. TSH was trended, was normal. The patient's mentation also improved back to her baseline. She has been cleared for discharge from Nephrology and Critical Care Medicine standpoint. She has been taken off her hydrochlorothiazide and have discussed this with the family members and herself. They will follow up with primary care physician for further instructions. She was seen and examined prior to discharge. PHYSICAL EXAMINATION: VITAL SIGNS: This morning, temperature 98.4, pulse of 73, respirations 18, saturating 98% on room air, blood pressure 120/63. GENERAL: No acute distress. Awake, alert, and oriented x3. CHEST: Clear to auscultation bilaterally. Rate and rhythm is regular. LABORATORY DATA: On discharge, sodium is 137, which was 115 upon presentation. Potassium on the day of discharge, is 3.7. Rest of the serum chemistries are unremarkable. CBC shows WBC 7.2, which was 13.1 upon presentation, hemoglobin 11.2. DISCHARGE PLAN: Discharge plan was discussed with the patient and family members who verbalized understanding. Job ID: [id number]
--- NOTE | 2018-04-04 20:37 | PRG ---
DATE OF SERVICE: 04/04/2018 SUBJECTIVE: The patient was seen and examined. OBJECTIVE: VITAL SIGNS: Noted with the following vital signs; afebrile, temperature 98.4, pulse 73, respiratory rate of 18, O2 saturations are 98%, and blood pressure 120/63. HEENT: Unremarkable. CARDIOVASCULAR SYSTEM: First and second heart sounds were heard. RESPIRATORY SYSTEM: Clear to auscultation. DIGESTIVE SYSTEM: Revealed a benign abdomen. Positive bowel sounds. EXTREMITIES: No peripheral edema. SKIN: No new gross rash. LYMPHATICS: No peripheral lymphadenopathy. LABORATORY INVESTIGATION: Showed a sodium of 137. IMPRESSION: Hyponatremia in the context of poor p.o. osmolar intake, which has since resolved as well as this hyponatremia was also contributed to by hydrochlorothiazide. PLAN: 1. Permanently discontinue hydrochlorothiazide. 2. Encourage p.o. intake. 3. Outpatient Nephrology followup strongly recommended. Job ID: [id number]
== END 2018-04-04 12:32 | disposition home or self-care (01) | DRG 640 ==
LOC: ERS 03:12 → IMCU/EMU 06:58
PROVIDERS: ADMIT Internal Medicine; ATTEND Internal Medicine
PROC: 02H633Z Insertion of Infusion Device into Right Atrium, Percutaneous Approach (ICD-10-PCS; principal; 2018-04-02)
DX: E87.1 Hypo-osmolality and hyponatremia (principal); G93.41 Metabolic encephalopathy; E87.6 Hypokalemia; I10 Essential (primary) hypertension; F41.9 Anxiety disorder, unspecified; T50.2X5A Adverse effect of carbonic-anhydrase inhibitors, benzothiadiazides and other diuretics, initial encounter; Z88.0 Allergy status to penicillin; Z79.899 Other long term (current) drug therapy
CPT/HCPCS: 36415; 70450; 71045; 80048; 80053; 80307; 82330; 82550; 82803; 83735; 83930; 83935; 84100; 84300; 84443; 84484; 85025; 93005; J1650; J1885; J3480; J7050; J7131

== ENCOUNTER 2018-07-25 11:27 | Outpatient (CLI) | payer OTHER ==
--- NOTE | 2018-07-25 11:50 | RAD ---
XR Chest Pa Lat STANDARD HISTORY: Abnormal chest x-ray COMPARISON: 04/02/2018 FINDINGS: The heart size is normal. The lungs are well expanded without focal areas of consolidation, pneumothorax or pleural effusions. IMPRESSION: No radiographic evidence of acute cardiopulmonary process.
== END 2018-07-25 11:28 | disposition home or self-care (01) ==
LOC: BICRAD 11:27
PROVIDERS: ATTEND Family Medicine
DX: R91.8 Other nonspecific abnormal finding of lung field (principal)
CPT/HCPCS: 71046

== ENCOUNTER 2020-04-01 08:16 | Inpatient (IN) | payer OTHER, SELFPAY ==
[2020-04-01 08:46] LABS: #Lymphocytes 1.1 thou/uL (1.20-3.40); #Monocytes 0.7 thou/uL (0.11-0.59); #Neutrophils 9.5 thou/uL (1.40-6.50); %Basophils 0.1 % (0.0-1.0); %Eosinophils 0.1 % (0.0-10.0); %Lymphocytes 9.5 % (21.0-51.0); %Monocytes 6.4 % (0.0-10.0); %Neutrophils 83.9 % (42.0-75.0); Hemoglobin 15.2 g/dL (12.0-16.0); Mean Corpuscular HGB CONC 32.4 g/dL (32.0-36.0); Mean Corpuscular Volume 89.5 fL (78.0-98.0); Mean Platelet Volume 8.8 fL (7.4-10.4); Platelet Count 257 thou/uL (130-400); RBC Distribution Width 14.1 % (11.5-14.5); Red Blood Cell (RBC) Count 5.23 mill/uL (4.20-5.40); White Blood Cell (WBC) Count 11.3 thou/uL (4.8-10.8)
[2020-04-01] MEDS ORDERED: cefTRIAXone\\ROCEPHIN 2 GM VIAL ONE (08:52)
[2020-04-01 09:06] LABS: ALT (SGPT) 386 U/L (8-55); AST (SGOT) 554 U/L (5-34); Albumin 3.9 g/dL (3.5-5.0); Alkaline Phosphatase 214 U/L (40-110); Anion Gap 18 mmol/L (10-20); BUN (Urea Nitrogen) 6 mg/dL (9.8-20.1); Bilirubin, Total 4.5 mg/dL (0.2-1.2); Calc. Creatinine Clearance 0 mL/min (70-130); Calcium 8.9 mg/dL (7.8-10.44); Carbon Dioxide 21 mmol/L (22-29); Chloride 105 mmol/L (98-107); Globulin 3.7 g/dL (2.4-3.5); Glucose 173 mg/dL (70-105); Potassium 3.6 mmol/L (3.5-5.1); Protein, Total 7.6 g/dL (6.0-8.3); Sodium 140 mmol/L (136-145)
[2020-04-01 09:18] LABS: Lipase 3102 U/L (8-78)
[2020-04-01] MEDS ORDERED: Azithromycin 500 MG VIAL ONE (09:20)
[2020-04-01] MEDS ORDERED: Iopamidol-370 76% 500 ML 1 ML ONE (10:28)
[2020-04-01 10:58] LABS: SARS-CoV-2 NAA Rapid Test DETECTED (NotDetected)
[2020-04-01 11:37] LABS: Lactic Acid 1.1 mmol/L (0.5-2.2)
[2020-04-01 12:25] LABS: Bacteria/HPF 3+ HPF (None Seen); Bilirubin 1+ (Negative); Blood, Urine Negative (Negative); Clarity Turbid (Clear); Glucose, Urine (Dipstick) Normal (Negative); Ketone, Urine Negative (Negative); Leukocyte 250 Leu/uL (Negative); Nitrite Negative (Negative); Protein, Urine (Dipstick) Negative (Neg-Trace); RBC/HPF 0-3 HPF (0-3); Specific Gravity, Urine 1.004 (1.002-1.036); Urobilinogen Normal mg/dL (Less than 2); pH, Urine 5.5 (5.0-9.0)
[2020-04-01] MEDS ORDERED: Morphine 4 MG/ML VIAL ONE (14:18)
[2020-04-01] MEDS ORDERED: Ondansetron PF 4 MG/2 ML Vial ONE (14:18)
[2020-04-01] MEDS ORDERED: Ondansetron ODT 4 MG TAB PO PRN (15:12)
[2020-04-01] MEDS ORDERED: Senokot S 8.6-50 MG TAB PO PRN (15:12)
[2020-04-01] MEDS ORDERED: Acetaminophen 325 MG TAB PO PRN (15:12)
[2020-04-01] MEDS ORDERED: Guaifenesin DM 100-10/5 ML UDCUP PO PRN (15:12)
[2020-04-01] MEDS ORDERED: HYDROcodone/Acetaminophen 5/325 mg Tablet PO PRN ×2 (15:12)
[2020-04-01] MEDS ORDERED: Ondansetron PF 4 MG/2 ML Vial IVP PRN (15:12)
[2020-04-01] MEDS ORDERED: Sodium Chloride 0.9% 1,000 ML IV SCH (15:12)
[2020-04-01] MEDS ORDERED: Acetaminophen 650 MG Suppository PR PRN (15:12)
[2020-04-01 15:23] VITALS: BMI 28.0
[2020-04-01] MEDS: Famotidine 20 MG TAB PO SCH (20:54)
[2020-04-01] MEDS: Lisinopril 20 MG TAB PO SCH (20:54)
[2020-04-01] MEDS: Sodium Chloride 0.9% 1,000 ML IV SCH (20:54)
[2020-04-02] MEDS: Sodium Chloride 0.9% 1,000 ML IV SCH ×4 (03:20→19:43)
[2020-04-02 07:26] LABS: #Eosinphils 0.2 thou/uL (0.0-0.7); #Lymphocytes 2.2 thou/uL (1.20-3.40); #Monocytes 0.4 thou/uL (0.11-0.59); #Neutrophils 2.5 thou/uL (1.40-6.50); %Basophils 0.9 % (0.0-1.0); %Eosinophils 3.5 % (0.0-10.0); %Lymphocytes 40.8 % (21.0-51.0); %Monocytes 7.8 % (0.0-10.0); Hemoglobin 11.4 g/dL (12.0-16.0); Mean Corpuscular HGB CONC 31.7 g/dL (32.0-36.0); Mean Corpuscular Hemoglobin 29.7 pg (27.0-31.0); Mean Corpuscular Volume 93.8 fL (78.0-98.0); Mean Platelet Volume 9.3 fL (7.4-10.4); Platelet Count 169 thou/uL (130-400); RBC Distribution Width 14.3 % (11.5-14.5); Red Blood Cell (RBC) Count 3.85 mill/uL (4.20-5.40); White Blood Cell (WBC) Count 5.3 thou/uL (4.8-10.8)
[2020-04-02 07:40] LABS: ALT (SGPT) 237 U/L (8-55); AST (SGOT) 186 U/L (5-34); Albumin 2.8 g/dL (3.5-5.0); Alkaline Phosphatase 151 U/L (40-110); Anion Gap 7 mmol/L (10-20); BUN (Urea Nitrogen) 6 mg/dL (9.8-20.1); Calc. Creatinine Clearance 109 mL/min (70-130); Calcium 7.9 mg/dL (7.8-10.44); Carbon Dioxide 26 mmol/L (22-29); Chloride 113 mmol/L (98-107); Globulin 2.7 g/dL (2.4-3.5); Glucose 81 mg/dL (70-105); Lipase 104 U/L (8-78); Potassium 3.7 mmol/L (3.5-5.1); Protein, Total 5.5 g/dL (6.0-8.3); Sodium 142 mmol/L (136-145)
[2020-04-02] MEDS: Lisinopril 20 MG TAB PO SCH ×2 (08:56→19:42)
[2020-04-02] MEDS: Famotidine 20 MG TAB PO SCH ×2 (08:56→19:42)
[2020-04-02] MEDS: Enoxaparin Sodium 40 MG/0.4 ML SYRINGE SC SCH (08:56)
[2020-04-03] MEDS: Sodium Chloride 0.9% 1,000 ML IV SCH ×4 (02:05→20:44)
[2020-04-03 06:39] LABS: ALT (SGPT) 175 U/L (8-55); AST (SGOT) 87 U/L (5-34); Albumin 2.9 g/dL (3.5-5.0); Alkaline Phosphatase 133 U/L (40-110); Anion Gap 8 mmol/L (10-20); BUN (Urea Nitrogen) 4 mg/dL (9.8-20.1); Bilirubin, Total 0.7 mg/dL (0.2-1.2); Calc. Creatinine Clearance 114 mL/min (70-130); Calcium 7.9 mg/dL (7.8-10.44); Carbon Dioxide 28 mmol/L (22-29); Chloride 108 mmol/L (98-107); Globulin 2.7 g/dL (2.4-3.5); Glucose 82 mg/dL (70-105); Potassium 3.4 mmol/L (3.5-5.1); Protein, Total 5.6 g/dL (6.0-8.3); Sodium 141 mmol/L (136-145)
[2020-04-03] MEDS: Famotidine 20 MG TAB PO SCH ×2 (08:40→15:00)
[2020-04-03] MEDS ORDERED: Lidocaine 1% PF 5 ML VIAL ONE (09:46)
[2020-04-03] MEDS ORDERED: Rocuronium Bromide 10 MG/ML (10ML VIAL) ONE (09:46)
[2020-04-03] MEDS ORDERED: Ondansetron PF 4 MG/2 ML Vial ONE (09:46)
[2020-04-03] MEDS ORDERED: Dexamethasone 20 MG/5 ML VIAL ONE (09:46)
[2020-04-03] MEDS ORDERED: PROPOFOL 200 MG/20 ML VIAL ONE (09:46)
[2020-04-03] MEDS ORDERED: Iothalamate Meglumine 60% 50 ML VIAL FS ONE (10:32)
[2020-04-03] MEDS ORDERED: Indomethacin 50 MG SUPP ONE (10:39)
[2020-04-03] MEDS ORDERED: Fentanyl 100 MCG/2 ML VIAL ONE (11:35)
[2020-04-03] MEDS: Enoxaparin Sodium 40 MG/0.4 ML SYRINGE SC SCH (15:00)
[2020-04-03] MEDS: Lisinopril 20 MG TAB PO SCH ×2 (15:01→20:42)
[2020-04-04] MEDS: Sodium Chloride 0.9% 1,000 ML IV SCH (04:57)
[2020-04-04 06:17] LABS: ALT (SGPT) 149 U/L (8-55); AST (SGOT) 54 U/L (5-34); Albumin 3.2 g/dL (3.5-5.0); Alkaline Phosphatase 139 U/L (40-110); Anion Gap 14 mmol/L (10-20); BUN (Urea Nitrogen) 6 mg/dL (9.8-20.1); Bilirubin, Total 0.7 mg/dL (0.2-1.2); Calc. Creatinine Clearance 114 mL/min (70-130); Calcium 8.4 mg/dL (7.8-10.44); Carbon Dioxide 24 mmol/L (22-29); Chloride 107 mmol/L (98-107); Globulin 3.1 g/dL (2.4-3.5); Glucose 91 mg/dL (70-105); Potassium 3.4 mmol/L (3.5-5.1); Protein, Total 6.3 g/dL (6.0-8.3); Sodium 142 mmol/L (136-145)
[2020-04-04 07:39] VITALS: BP 134/77; TEMP 98.9
[2020-04-04] MEDS ORDERED: Potassium Chloride 20 MEQ TAB PO SCH (08:30)
[2020-04-04] MEDS: Famotidine 20 MG TAB PO SCH (08:58)
[2020-04-04] MEDS: Lisinopril 20 MG TAB PO SCH (08:59)
[2020-04-04] MEDS: Enoxaparin Sodium 40 MG/0.4 ML SYRINGE SC SCH (09:57)
== END 2020-04-04 17:20 | disposition home or self-care (01) | DRG 438 ==
LOC: ERS 08:16 → T4-A 13:13
PROVIDERS: ADMIT Emergency Medicine; ATTEND Internal Medicine
PROC: 0FJB8ZZ Inspection of Hepatobiliary Duct, Via Natural or Artificial Opening Endoscopic (ICD-10-PCS; principal; 2020-04-03)
PROC: 0FJD8ZZ Inspection of Pancreatic Duct, Via Natural or Artificial Opening Endoscopic (ICD-10-PCS; 2020-04-03)
DX: K85.10 Biliary acute pancreatitis without necrosis or infection (principal); U07.1 COVID-19; J12.82 Pneumonia due to coronavirus disease 2019; K83.1 Obstruction of bile duct; E87.2 Acidosis; I10 Essential (primary) hypertension; K76.0 Fatty (change of) liver, not elsewhere classified; E86.9 Volume depletion, unspecified; Z88.0 Allergy status to penicillin; Z90.49 Acquired absence of other specified parts of digestive tract; Z79.899 Other long term (current) drug therapy
CPT/HCPCS: 0240U; 36415; 71045; 74177; 76000; 76705; 80053; 81003; 81015; 83605; 83690; 84484; 85025; 87040; 87086; 93005; 93010; 96365; 96367; 96375; J0456; J0696; J1100; J1610; J1650; J2270; J2405; J2704; J3010; Q9967